=== PATIENT | male | born 1940 | race Caucasian/White ===

== ENCOUNTER 2020-03-12 06:32 | Day surgery (SDC) | payer MEDICARE, BC, SELFPAY ==
[2020-03-11 15:28] VITALS: BMI 29.2
[2020-03-12 06:46] VITALS: BP 131/69; PULSE 63; RESP 18; TEMP 36.1; O2SAT 97
[2020-03-12] MEDS: sodium chloride 0.9% 1,000 ML 30 ML IV (07:09)
--- NOTE | 2020-03-12 07:17 | W.PM.OPSUD ---
Surgery/Procedure H&P Update DATE OF PROCEDURE: March 12, 2020 DATE H&P PERFORMED: 03/02/20 H&P UPDATE INFORMATION: I have reviewed H&P completed within last 30 days and No changes to prior documentation PREOP DIAGNOSIS: Narrowing caliber of stool, increasing constipation PLANNED PROCEDURE: Operation Date: 03/12/20 08:00 Proposed Procedures p Colonoscopy(Not Applicable) - Jose Hitchcock MD
--- NOTE | 2020-03-12 07:39 | ANES.PREANE2 ---
Pre-Anesthetic Assessment Pre-Anesthetic Assessment: Height/Weight: Height 1.78 m Weight 92.533 kg Temp Pulse Resp BP Pulse Ox 97.0 F L 63 18 131/69 97 03/12/20 06:46 03/12/20 06:46 03/12/20 06:46 03/12/20 06:46 03/12/20 06:46 Preop Diagnosis: Narrowing caliber of stool, increasing constipation Proposed Procedure: Operation Date: 03/12/20 08:00 Proposed Procedures p Colonoscopy(Not Applicable) - Jose Hitchcock MD Was Beta Elio taken within 24 hours: Yes Last intake: Intake Last Liquid Date 03/11/20 Last Liquid Time 18:30 Last Solid Date 03/11/20 Last Solid Time 12:00 Social: Social History: No alcohol and No tobacco Exam: Pre-Anes Outpt Exam: alert, oriented x 3, clear to auscultation bilaterally and regular rate & rhythm Airway: Submandibular: WNL Cervical ROM: WNL MP: 2 Dentition: False History/ROS: No significant history except as noted and No significant complaints Pulmonary: Pulmonary: Sleep apnea CV/HEM: CV/HEM: CAD and HTN : : None reported Hepatic: Hepatic: None reported GI: GI: GERD Metabolic: Metabolic: Hyperlipidemia Musc/skel: Musc/skel: OA/DJD Neuropsych: Neuropsych: None reported Anesthetic Plan: ASA status: 3 Anesthesia: Anesthesia Evaluation and MAC Risk of > 500 ml blood loss (7ml/kg in children): No Meds/Allergies Current Medications: Current Medications Generic Name Dose Route Start Last Admin Trade Name Freq PRN Reason Stop Dose Admin Sodium Chloride 1,000 mls @ 30 ml s/hr 03/12/20 06:45 03/12/20 07:09 Sodium Chloride 0.9% IV 03/13/20 06:44 30 mls/hr .Q24H WALTER Administration PFSH Anesthesia PFSH: Family History (Updated 03/11/20 @ 15:36 by Shira Palafox RN) Other Prostate cancer Social History (Updated 03/11/20 @ 15:37 by Shira Palafox RN) Smoking and tobacco status: former smoker Data Anesthesia Cardiac Studies: No Data to Display
[2020-03-12 08:04] VITALS: BP 128/71; PULSE 61; RESP 16; TEMP 36.6; O2SAT 96
[2020-03-12 08:18] VITALS: BP 142/61; PULSE 60; RESP 18; TEMP 36.6; O2SAT 98
== END 2020-03-12 08:38 | disposition home or self-care (01) ==
PROVIDERS: Family Provider Family Medicine; PCP Family Medicine; Visit Provider Surgery
PROC: 0DJD8ZZ Inspection of Lower Intestinal Tract, Via Natural or Artificial Opening Endoscopic (ICD-10-PCS; CPT 45378; principal; 2020-03-12 08:00)
DX: R19.5 Other fecal abnormalities (principal); K59.00 Constipation, unspecified; D12.0 Benign neoplasm of cecum; K64.8 Other hemorrhoids; I25.10 Atherosclerotic heart disease of native coronary artery without angina pectoris; I10 Essential (primary) hypertension; G47.30 Sleep apnea, unspecified; E78.5 Hyperlipidemia, unspecified; M19.90 Unspecified osteoarthritis, unspecified site; K21.9 Gastro-esophageal reflux disease without esophagitis; Z87.891 Personal history of nicotine dependence
CPT/HCPCS: 45385; 12345; 45380; 88305; J2001; J2704; J7030

== ENCOUNTER 2020-07-16 13:11 | Outpatient (CLI) | payer MEDICARE, BC, SELFPAY ==
--- NOTE | 2020-07-16 13:19 | US_ITS ---
WS: [id number] ULTRASOUND SOFT TISSUES superior LEFT gastrocnemius. HISTORY: MUSCLE TEAR/ ATTN:SUPERIOR LATERAL GASTROC COMPARISON: None available. TECHNIQUE: 2-D and color Doppler imaging is submitted. There is no fluid or hematoma associated with the LEFT gastrocnemius muscle. There is no fluid or ret raction of the tendon. US/US soft tissue/extremity [id number] IMPRESSION: Negative ultrasound LEFT gastrocnemius.
== END 2020-07-16 13:12 | disposition home or self-care (01) ==
LOC: RAD 13:15
PROVIDERS: PCP Family Medicine; Visit Provider Family Medicine
DX: M62.00 Separation of muscle (nontraumatic), unspecified site (principal)
CPT/HCPCS: 76882

== ENCOUNTER 2020-10-19 09:45 | Outpatient (CLI) | payer MEDICARE, BC, SELFPAY ==
--- NOTE | 2020-10-19 10:15 | USCV_ITS ---
Vikki Alvarez Age: 80 Gender: M : 1940 Exam Date: 10/19/2020 09:59 Ordering Phys: Danie Magallon MD ([email or web address]) Technologist: Trevor Turpin [place] [facility] [place]: CAD BP: 143 / 86 HR: 64 Rhythm: Sinus Technical Quality: Fair MEASUREMENTS (Male / Female) Normal Values 2D ECHO LV Diastolic Diameter PLAX 3.7 cm 4.2 - 5.9 / 3.9 - 5.3 cm LV Systolic Diameter PLAX 2.2 cm IVS Diastolic Thickness 0.9 cm 0.6 - 1.0 / 0.6 - 0.9 cm IVS Systolic Thickness 1.2 cm LVPW Diastolic Thickness 1.0 cm 0.6 - 1.0 / 0.6 - 0.9 cm LVPW Systolic Thickness 1.2 cm LVOT Diameter 2.0 cm LV Ejection Fraction 2D Teich 71.7 % LV Ejection Fraction MOD 2C 63.4 % LV Ejection Fraction 2C AL 64.3 % LA Diameter 3.6 cm LA Width 4.2 cm LA Height 4.8 cm RA Width 3.9 cm RA Height 4.6 cm Aorta at Sinotubular Diameter 2.4 cm M-MODE LV Diastolic Diameter MM 4.3 cm 4.2 - 5.9 / 3.9 - 5.3 cm LV Systolic Diameter MM 3.1 cm LV Ejection Fraction MM Teich 52.7 % IVS Diastolic Thickness MM 1.3 cm 0.6 - 1.0 / 0.6 - 0.9 cm IVS Systolic Thickness MM 1.1 cm LVPW Diastolic Thickness MM 1.2 cm 0.6 - 1.0 / 0.6 - 0.9 cm LVPW Systolic Thickness MM 1.7 cm RV Diastolic Diameter MM 1.9 cm Aortic Annulus Diameter 3.7 cm LA Ao Ratio MM 0.9 MV E Point Septal Separation 1.3 cm DOPPLER AV Peak Velocity 119.0 cm/s LVOT Peak Velocity 98.0 cm/s AV Area Cont Eq vti 2.9 cm squared AV Area Cont Eq pk 2.6 cm squared MV Area PHT 5.0 cm squared Mitral E to A Ratio 0.6 MV E' Velocity 29.0 cm/s Mitral E to MV E' Ratio 8.7 Mitral E to LV E' Lateral Ratio 8.4 Mitral E to LV E' Septal Ratio 9.0 TR Peak Velocity 332.3 cm/s TR Peak Gradient 44.2 mmHg TV Peak E Velocity 91.0 cm/s Right Atrial Pressure 3.0 mmHg Pulmonary Artery Systolic Pressu 47.2 mmHg PV Peak Velocity 134.0 cm/s FINDINGS Left Ventricle Normal left ventricular size, systolic function and wall thickness, with no regional wall motion abnormalities. Left ventricular ejection fraction is estimated at 60 %. Grade I diastolic dysfunction (abnormal relaxation filling pattern), normal to mildly elevated filling pressures. Right Ventricle Normal right ventricular size and systolic function. Right ventricular systolic pressure 22 mmHg. Right Atrium Normal right atrial size. Right atrial pressure estimated at 3 mm Hg. Left Atrium Normal left atrial size. Mitral Valve Structurally normal mitral valve. No mitral valve stenosis. Trace mitral valve regurgitation. Aortic Valve Aortic valve not well visualized. No aortic valve stenosis. Mild to moderate aortic valve regurgitation. Tricuspid Valve Structurally normal tricuspid valve. No tricuspid valve stenosis. Trace tricuspid valve regurgitation. Pulmonic Valve Pulmonic valve not well visualized. Pericardium No pericardial effusion. Aorta Normal size aortic root and proximal ascending aorta. Normal sized inferior vena cava. CONCLUSIONS 1. Normal left ventricular size, systolic function and wall thickness, with no regional wall motion abnormalities. Left ventricular ejection fraction is estimated at 65 %. Grade I diastolic dysfunction (abnormal relaxation filling pattern), normal to mildly elevated filling pressures. 2. No significant aortic valve stenosis based on this study. Mild to moderate aortic valve regurgitation. 3. Normal pulmonary artery pressure. 4. When compared to previous study dated 09/13/20, aortic valve stenosis was not seen. Myah Goff MD (Electronically Signed) Final Date: 25 October 2020 14:36 S
== END 2020-10-19 09:46 | disposition home or self-care (01) ==
LOC: US 09:45
PROVIDERS: PCP Family Medicine; Visit Provider Internal Medicine Cardiovascular Disease
DX: I25.10 Atherosclerotic heart disease of native coronary artery without angina pectoris (principal)
CPT/HCPCS: 93306

== ENCOUNTER 2020-12-21 09:19 | Outpatient (CLI) | payer MEDICARE, BC, SELFPAY ==
--- NOTE | 2020-12-21 09:58 | AMB.MCA ---
Patient Information Referred by: Sathish Chan Symptom onset date: 12/16/20 COVID 19 common symptoms: positive fever(s), fatigue and body aches Severity: mild Other details: 97% RA [employer] Sathish Chan Covid test on Dec [facility] COVID test results: No Data to Display outside results available, scanned Criteria/Plan Inclusion/Exclusion Criteria weight >/= 40kg, + direct test </= 10 days ago and symptom onset </= 10 days ago age >/= 65 not requiring hospitalization, not requiring oxygen (if not chronically on oxygen) and no increase oxygen requirement (if chronically on oxygen) Patient education patient/caregiver received/reviewed fact sheet, Emergency Use Authorization/unapproved drug status discussed with patient/caregiver, alternatives to this treatment discussed with patient/caregiver, risks and benefits of medication reviewed with patient/caregiver, patient/caregiver given opportunity for questions, which were answered and patient/caregiver consents to receiving Monoclonal Antibody Treatment Plan for treatment Meets criteria for Monoclonal Antibody infusion Ordering Monoclonal Antibody infusion for today
[2020-12-21 10:00] VITALS: BP 141/64; PULSE 75; RESP 18; TEMP 36.4; O2SAT 97
[2020-12-21 10:16] VITALS: BMI 30.2
[2020-12-21 11:16] VITALS: BP 122/54; PULSE 68; RESP 17; TEMP 36.4; O2SAT 97
[2020-12-21 12:15] VITALS: BP 137/58; PULSE 62; RESP 18; O2SAT 97
== END 2020-12-21 12:10 | disposition home or self-care (01) ==
LOC: OPS 09:21
PROVIDERS: PCP Family Medicine; Referring Provider Nurse Practitioner Family; Visit Provider Nurse Practitioner Family
DX: U07.1 COVID-19 (principal)
CPT/HCPCS: 96365

== ENCOUNTER 2021-04-19 10:00 | Outpatient (CLI) | payer MEDICARE, BC, SELFPAY ==
--- NOTE | 2021-04-19 10:20 | XRR_ITS ---
PROCEDURE INFORMATION: Exam: XR Chest Exam date and time: 04/19/2021 10:22 AM Age: 80 years old Clinical indication: Patient HX: Cough x 1 month; Additional info: Pleurisy TECHNIQUE: Imaging protocol: XR of the chest. Views: 2 views. COMPARISON: CR Chest 1 [place] [id number] 11/06/2018 8:44 PM FINDINGS: Lungs: No acute airspace disease. Pleural spaces: No pleural effusion. Heart/Mediastinum: No cardiomegaly. Vasculature: Ectasia of the thoracic aorta. Bones/joints: Degenerative change. When correlating with the previous study, no significant interval changes are present. XR/XR chest 2V* [id number] IMPRESSION: No acute airspace for pleural disease.
== END 2021-04-19 10:01 | disposition home or self-care (01) ==
PROVIDERS: PCP Family Medicine; Visit Provider Family Medicine
DX: R09.1 Pleurisy (principal)
CPT/HCPCS: 71046

== ENCOUNTER 2021-11-04 09:11 | Outpatient (CLI) | payer MEDICARE, BC, SELFPAY ==
--- NOTE | 2021-11-04 09:30 | USCV_ITS ---
Vikki Alvarez Age: 81 Gender: M : 1940 Exam Date: 11/04/2021 09:30 Ordering Phys: Sohail Dior M.D ([email or web address]) Technologist: Exam Location: [facility] – [place] Indication: AO INSUFF BP: 140 / 80 HR: 67 Rhythm: Sinus Technical Quality: Adequate MEASUREMENTS (Male / Female) Normal Values 2D ECHO LV Diastolic Diameter PLAX 3.8 cm 4.2 - 5.9 / 3.9 - 5.3 cm LV Systolic Diameter PLAX 1.9 cm IVS Diastolic Thickness 1.2 cm 0.6 - 1.0 / 0.6 - 0.9 cm IVS Systolic Thickness 1.3 cm LVPW Diastolic Thickness 1.1 cm 0.6 - 1.0 / 0.6 - 0.9 cm LVPW Systolic Thickness 1.4 cm LVOT Diameter 2.0 cm LV Ejection Fraction 2D Teich 84.3 % LV Ejection Fraction MOD 2C 64.0 % LV Ejection Fraction 2C AL 65.6 % LA Diameter 3.7 cm LA Width 3.7 cm LA Height 4.8 cm RA Width 3.9 cm RA Height 4.7 cm Aorta at Sinotubular Diameter 3.7 cm M-MODE Aortic Annulus Diameter 3.4 cm LA Ao Ratio MM 1.2 MV E Point Septal Separation 1.4 cm DOPPLER AV Peak Velocity 253.0 cm/s LVOT Peak Velocity 111.0 cm/s AV Area Cont Eq vti 1.8 cm squared AV Area Cont Eq pk 1.4 cm squared MV Area PHT 5.0 cm squared Mitral E to A Ratio 0.6 MV E' Velocity 32.5 cm/s Mitral E to MV E' Ratio 7.0 Mitral E to LV E' Lateral Ratio 6.8 Mitral E to LV E' Septal Ratio 7.4 TR Peak Velocity 270.0 cm/s TR Peak Gradient 29.2 mmHg TV Peak E Velocity 113.0 cm/s Right Atrial Pressure 3.0 mmHg Pulmonary Artery Systolic Pressu 32.2 mmHg FINDINGS Left Ventricle Normal left ventricular size. LV systolic function is normal with EF of 55-60%.No regional wall motion abnormalities. Grade 1 diastolic dysfunction Right Ventricle The right ventricle is normal in size and function. Right Atrium The right atrium is normal in size. Left Atrium The left atrium is normal in size. Mitral Valve Thickened mitral valve without significant stenosis or prolapse. There is no mitral regurgitation. Aortic Valve Structurally normal aortic valve. Mild aortic stenosis with mean gradient across the aortic valve of 11mmHg and aortic valve area of 1.81cm2. There is mild aortic regurgitation. Tricuspid Valve Structurally normal tricuspid valve without significant stenosis or regurgitation. Insufficient TR jet to calculate RVSP Pulmonic Valve Structurally normal pulmonic valve without significant stenosis. There is no pulmonic regurgitation. Pericardium Normal pericardium without effusion. Aorta Normal ascending aorta dimension. CONCLUSIONS LV systolic function is normal with EF of 55-60% Grade 1 diastolic dysfunction Mild aortic regurgitation.. Mild aortic stenosis Compared to prior echocardiogram from 10/19/2020, patient now has mild aortic stenosis Sohail Dior MD (Electronically Signed) Final Date: 08 November 2021 10:52 S
== END 2021-11-04 09:12 | disposition home or self-care (01) ==
LOC: RAD 09:15
PROVIDERS: PCP Family Medicine; Visit Provider Internal Medicine
DX: I35.1 Nonrheumatic aortic (valve) insufficiency (principal)
CPT/HCPCS: 93306

== ENCOUNTER → 2022-03-08 12:46 | Outpatient (BNVA) | payer MEDICARE, BC, SELFPAY | PROVIDERS: PCP Family Medicine; Visit Provider Internal Medicine | DX: I10 Essential (primary) hypertension (principal); E78.00 Pure hypercholesterolemia, unspecified; I25.10 Atherosclerotic heart disease of native coronary artery without angina pectoris; I35.2 Nonrheumatic aortic (valve) stenosis with insufficiency; Z95.5 Presence of coronary angioplasty implant and graft; Z87.891 Personal history of nicotine dependence | CPT/HCPCS: 99213; 99214 ==

== ENCOUNTER → 2022-05-23 14:33 | Outpatient (BNVA) | payer MEDICARE, BC, SELFPAY | PROVIDERS: PCP Family Medicine; Visit Provider Nurse Practitioner Family | DX: I25.10 Atherosclerotic heart disease of native coronary artery without angina pectoris (principal); I10 Essential (primary) hypertension; Z87.891 Personal history of nicotine dependence | CPT/HCPCS: 93005; 99213 ==

== ENCOUNTER 2022-10-24 12:00 | Emergency (ER) | payer MEDICARE, BC, SELFPAY ==
[2022-10-24 12:23] VITALS: BP 150/70; PULSE 101; RESP 16; TEMP 38.9; O2SAT 94; BMI 28.7
--- NOTE | 2022-10-24 12:27 | XR_ITS ---
WS: [id number] Portable AP upright chest, 10/24/2022 Clinical Data: cough Comparison: PA and lateral chest, 04/19/2021. Findings: No nodules, masses or effusions are seen. The right heart border is slightly obscured and t here may be minimal atelectasis or pneumonia of the right middle lobe. The heart is normal. The pulmo nary vascularity is not increased. No pneumonia or pneumothorax is seen. The aortic arch and descendi ng thoracic aorta show tortuosity. XR/XR chest 1V portable [id number] Impression: 1. Minimal opacity obscuring right cardiac border which could indicate atelecta sis and/or minimal pneumonia. 2. Atherosclerosis.
[2022-10-24 14:20] VITALS: BP 130/69; PULSE 104; RESP 18; O2SAT 94
--- NOTE | 2022-10-24 14:34 | ED_ITS ---
HPI - Fever General: Chief Complaint: General Medical Stated Complaint: chills, fever Time Seen by Provider: 10/24/22 14:18 Source: patient and family Mode of arrival: ambulatory Limitations: no limitations History of Present Illness: Patient is a nice 82-year-old male who presents to ED today along with family for concerns of a cough and fever that began yesterday evening. Patient tells me his cough is productive. Patient is febrile upon arrival at 102.1. He denies sick contacts. He is having g eneralized body aches but no specific pain anywhere. He does not complain of chest pain, shortness of breath, or difficulty breathing. He is not having any abdominal pain, nausea, vomiting. No other URI symptoms besides the cough. MD elicited complaint: fever Onset (ago): day(s) (yesterday) Exacerbating factors: nothing Relieving factors: nothing Associated symptoms: Reports chills; Deny abdominal pain, flank pain, chest pain, confusion, diarrhea, dysuria, extremity pain, headache(s), nasal congestion, nausea, sinus pain or vomiting Treatments prior to arrival fever: none Review of Systems Const: Reports: fever(s), chills and body aches Eyes: Denies: change in vision, blurry vision, photophobia or eye discharge ENMT: Denies: throat pain, odynophagia, ear or mastoid pain, nasal discharge, nasal congestion, post nasal drip or sinus pain Card: Denies: chest pain, palpitations, irregular heart rhythm, edema, lightheadedness, syncope or pre-syncope Resp: Reports: productive cough and chest congestion; Denies: dyspnea, wheezing, pain on inspiration or hemoptysis GI: Denies: abdominal pain, nausea, vomiting or diarrhea : Denies: flank pain or dysuria Musc: Denies: neck pain, back pain, extremity pain or joint pain Skin/Breast: Denies: rash Neuro: Denies: headache(s), confusion or behavioral changes PFSH ED PFSH: Medical History Aortic insufficiency with aortic stenosis CAD (coronary artery disease) GERD (gastroesophageal reflux disease) Glaucoma History of malignant melanoma History of nonmelanoma skin cancer History of skin cancer Hx of radiation therapy Hypercholesteremia Hypertension Sleep apnea Tobacco abuse Surgical History H/O heart artery stent History of hip surgery Hx of knee surgery Family History Other Prostate cancer Social History Smoking and tobacco status: former smoker Alcohol intake: never Lives independently: Yes Marital status: / service: Yes branch: [employer] Physical Exam Const: COMMON NORMALS: no acute distress, average body habitus, patient oriented x3, no limitations, healthy appearing, alert and well nourished GENERAL APPEARANCE: cooperative ORIENTATION/CONSCIOUSNESS: Yes awake, Yes oriented to person, Yes oriented to place and Yes oriented to time HENMT: COMMON NORMALS: normocephalic and atraumatic HEAD & SCALP: normal to inspection, normocephalic and atraumatic THROAT: posterior oropharynx normal Eye: GENERAL EYE: appearance normal, both eyes and all related structures Neck/C-Spine: COMMON NORMALS: full ROM and no lymphadenopathy GENERAL: Yes normal visual inspection Chest: COMMONS NORMALS: normal inspection of the chest and normal palpation of entire chest wall Resp: COMMON NORMALS: normal respiratory effort, No retractions and No use of accessory muscles EFFORT & INSPECTION: Yes able to speak in complete sentences AUSCULTATION: rhonchi Cardio: COMMON NORMALS: regular rhythm RATE: tachycardic (mild-patient is currently febrile) RHYTHM: regular rhythm GI: COMMON NORMALS: Normal to inspection, nondistended, normoactive bowel sounds present, Soft to palpation and non-tender PALPATION: Yes Soft to palpation : COMMON NORMALS: Yes no CVA tenderness BLADDER/KIDNEY EXAM: Yes no CVA tenderness Back/Pelvis: COMMON NORMALS: no CVA tenderness Extremity: COMMON NORMALS: normal to inspection GENERAL: Yes normal exam except as noted Neuro: JOSE ROBERTO COMA SCALE: document [facility] findings Jose Roberto coma scale eye opening: Spontaneous Jose Roberto coma scale verbal response: Orientated [place] coma scale motor response: Obey commands Jose Roberto coma scale total score: 15 COMMON NORMALS: patient oriented x3 SENSORIUM/ORIENTATION: Yes alert, Yes oriented to person, Yes oriented to place and Yes oriented to time Skin: COMMON NORMALS: no rashes or lesions noted GENERAL SKIN EXAM: no rashes or lesions noted Course Vital Signs: Vital signs: Vital Signs Temperature 97.6 F 10/24/22 16:41 Pulse Rate 100 10/24/22 16:41 Respiratory Rate 18 10/24/22 16:41 Blood Pressure 130/69 10/24/22 14:20 Pulse Oximetry 94 10/24/22 16:41 Oxygen Delivery Me thod 10/24/22 16:41 MDM - Fever Medical Decision Making Patient is feeling better now that fever has subsided and wishes to go home. He does not complain of shortness of breath, difficulty breathing, or chest pain. O2 sats are normal. His rapid influenza and COVID were negative. I did go ahead and obtain a respiratory panel although at this time it looks like patient has a bacterial pneumonia. He has a right cardiac border infiltrate with a white count of 17.7 and an elevated Pro-Goran at 0.9. Lactate normal. I had initially ordered patient IV Rocephin and Azithromycin however patient would like to go home so we compromised on IM Rocephin and he will be sent home with oral antibiotics. He has allergy to penicillins so will place on cephalosporin/macrolide for coverage of CAP. Lab Data 10/24/22 15:21 10/24/22 15:21 Radiology Impressions Chest X-Ray 10/24/22 12:27 Impression: 1. Minimal opacity obscuring right cardiac border which could indicate atelectasis and/or minimal pneumonia. 2. Atherosclerosis. Laboratory Results WBC 17.7 10^3/uL (4.0-10.0) H 10/24/22 15:21 RBC 4.56 10^6/uL (4.1-5.3) 10/24/22 15:21 Hgb 14.1 g/dL (11.7-16.6) 10/24/22 15:21 Hct 40.5 % (42.0-52.0) L 10/24/22 15:21 MCV 88.8 fl (80-94) 10/24/22 15:21 MCH 30.9 pg (28.0-34.0) 10/24/22 15:21 MCHC 34.8 g/dL (30.0-36.0) 10/24/22 15:21 RDW 12.8 % (12.1-15.1) 10/24/22 15:21 Plt Count 153 10^3/cmm (130-400) 10/24/22 15:21 MPV 9.8 fL (7.4-10.4) 10/24/22 15:21 Neut % (Auto) 88.5 % 10/24/22 15:21 Lymph % (Auto) 4.2 % 10/24/22 15:21 [place] % (Auto) 6.3 % 10/24/22 15:21 Eos % (Auto) 0.1 % 10/24/22 15:21 Baso % (Auto) 0.2 % 10/24/22 15:21 Neut # (Auto) 15.67 10^3/uL (1.8-7.7) H 10/24/22 15:21 Lymph # (Auto) 0.7 10^3/uL (0.8-4.8) L 10/24/22 15:21 [place] # (Auto) 1.1 10^3/uL (0.2-0.9) H 10/24/22 15:21 Eos # (Auto) 0.0 10^3/uL (0.0-0.8) 10/24/22 15:21 Baso # (Auto) 0.0 10^3/uL (0.0-0.1) 10/24/22 15:21 Nucleated RBC % (auto) 0 % 10/24/22 15:21 Nucleated RBCs # 0.0 /100WBC 10/24/22 15:21 Sodium 130 mmol/L (136-145) L 10/24/22 15:21 Potassium 3.6 mmol/L (3.5-5.1) 10/24/22 15:21 Chloride 95 mmol/L (98-107) L 10/24/22 15:21 Carbon Dioxide 24 mmol/L (22-29) 10/24/22 15:21 Anion Gap 14.6 (5-19) 10/24/22 15:21 BUN 8 mg/dL (8-23) 10/24/22 15:21 Creatinine 0.8 mg/dL (0.7-1.2) 10/24/22 15:21 GFR Calculation Not Reportable 10/24/22 15:21 Glucose 132 mg/dL (65-115) H 10/24/22 15:21 Calculated Osmolality 270 mOsm/kg (285-295) L 10/24/22 15:21 Lactic Acid 1.6 mmol/L (0.5-2.2) 10/24/22 15:21 Calcium 8.9 mg/dL (8.5-10.5) 10/24/22 15:21 Total Bilirubin 0.7 mg/dL (0.15-1.2) 10/24/22 15:21 AST 17 U/L (0-40) 10/24/22 15:21 ALT 10 U/L (0-41) 10/24/22 15:21 Alkaline Phosphatase 68 U/L (40-130) 10/24/22 15:21 Total Protein 7.4 g/dL (6.6-8.7) 10/24/22 15:21 Albumin 4.3 g/dL (3.5-5.2) 10/24/22 15:21 Globulin 3.1 g/dL (1.3-4.6) 10/24/22 15:21 Procalcitonin 0.91 ng/mL (0-0.5) H 10/24/22 15:21 Urine Color Yellow (Yellow) 10/24/22 16:02 Urine Appearance Clear (CLEAR) 10/24/22 16:02 Urine pH 6.5 (5-7) 10/24/22 16:02 Ur Specific [place] 1.005 (1.005-1.030) 10/24/22 16:02 Urine Protein Neg (Negative) 10/24/22 16:02 Urine Glucose (UA) Norm (Normal) 10/24/22 16:02 Urine Ketones Negative (Negative) 10/24/22 16:02 Urine Blood Neg (Negative) 10/24/22 16:02 Urine Nitrate Negative (Negative) 10/24/22 16:02 Urine Bilirubin Neg (Negative) 10/24/22 16:02 Urine Urobilinogen Norm mg/dL (Negative) 10/24/22 16:02 Ur Leukocyte Esterase Negative (Negative) 10/24/22 16:02 Influenza Type A Ag negative (Negative) 10/24/22 14:17 Influenza Type B Ag negative (Negative) 10/24/22 14:17 SARS-CoV-2 Ag (Rapid) negative (Negative) 10/24/22 14:17 Discharge Plan Discharge Patient Disposition: Home Clinical Impression: Pneumonia involving right lung Qualifiers: Pneumonia type: due to unspecified organism Lung location: unspecified part of lung Qualified Code(s): J18.9 - Pneumonia, unspecified organism Condition: Stable Prescriptions: New cefpodoxime 200 mg tablet 200 mg PO BID Qty: 14 0RF Rx Instructions: must administer with a meal/food azithromycin 250 mg tablet See Rx Instructions .ROUTE .COMPLEX Qty: 6 0RF Rx Instructions: take 500 mg today (day 1), then 250 mg for 4 days (days 2-5) No Action aspirin [Aspir-81] 81 mg tablet,delayed release (DR/EC) 81 mg PO DAILY ketoconazole 2 % cream 1 applic topical BID Qty: 30 2RF Rx Instructions: To pink scaly areas on face as needed metoprolol succinate 25 mg tablet extended release 24 hr 12.5 mg PO DAILY Qty: 45 3RF atorvastatin 20 mg tablet 20 mg PO DAILY omeprazole 20 mg capsule,delayed release(DR/EC) 20 mg PO DAILY Discharge Orders: Discharge ED (Routine); Ordered 10/24/22 Ordered By: Neeta Mi Referrals: Ronaldo Ramos DO [Primary Care Provider] - Patient Instructions: Bacterial Pneumonia (DC), Pneumonia (ED) Activity Restrictions/Additional Instructions: Please fill antibiotics and start them immediately. You need to return to the emergency department for shortness of breath, difficulty breathing, chest pain, uncontrollable fevers, or worsening cough. As we discussed you may purchase a home O2 finger sensor to monitor oxygen levels. He needs to return to the ED if oxygen begins running below 92%. Please follow-up with his primary care provider in 2 to 3 days for re-evaluation. I hope he begins to feel better soon. Coding Level of Care Code ED Assistant Professor Of Archaeology for Rhonda Irizarry Exam Comprehensive
[2022-10-24 14:42] LABS: SARS Covid-2 Antigen negative (Negative)
[2022-10-24 14:43] LABS: Influenza A by IFA negative (Negative); Influenza B by IFA negative (Negative)
[2022-10-24 15:37] LABS: Basophils % 0.2 %; Eosinophils % 0.1 %; Hematocrit 40.5 % (42.0-52.0); Hemoglobin 14.1 g/dL (11.7-16.6); Lymphocytes # 0.7 10^3/uL (0.8-4.8); Lymphocytes % 4.2 %; Mean Corpuscular HGB Conc 34.8 g/dL (30.0-36.0); Mean Corpuscular Hemoglobin 30.9 pg (28.0-34.0); Mean Corpuscular Volume 88.8 fl (80-94); Mean Platelet Volume 9.8 fL (7.4-10.4); Monocytes # 1.1 10^3/uL (0.2-0.9); Monocytes % 6.3 %; Neutrophils # 15.67 10^3/uL (1.8-7.7); Neutrophils % 88.5 %; Nucleated Red Blood Cells % 0 %; Platelet Count 153 10^3/cmm (130-400); Red Blood Count 4.56 10^6/uL (4.1-5.3); Red Cell Distribution Width 12.8 % (12.1-15.1); White Blood Count 17.7 10^3/uL (4.0-10.0)
[2022-10-24] MEDS: acetaminophen 500 mg Tablet 1000 MG PO (15:55)
[2022-10-24 16:10] LABS: Lactic Sepsis W/Reflex 1.6 mmol/L (0.5-2.2)
[2022-10-24 16:20] LABS: Procalcitonin 0.91 ng/mL (0-0.5)
[2022-10-24 16:30] LABS: Add Urine Microscopic? NO; Charge for UA Resulting for Rev
[2022-10-24 16:32] LABS: Bilirubin Urine Neg (Negative); Blood Urine Neg (Negative); Glucose Urine UA Norm (Normal); Ketones Urine Negative (Negative); Leukocyte Esterase Urine Negative (Negative); Nitrate Urine Negative (Negative); Protein Urine Neg (Negative); Specific Gravity, Urine 1.005 (1.005-1.030); Urine Appearance Clear (CLEAR); Urine Color Yellow (Yellow); Urobilinogen Urine Norm (Negative); pH Urine 6.5 (5-7)
[2022-10-24 16:32] LABS: Alanine Aminotransferase 10 U/L (0-41); Albumin Level 4.3 g/dL (3.5-5.2); Alkaline Phosphatase 68 U/L (40-130); Anion Gap 14.6 (5-19); Blood Urea Nitrogen 8 mg/dL (8-23); Calcium 8.9 mg/dL (8.5-10.5); Carbon Dioxide 24 mmol/L (22-29); Chloride 95 mmol/L (98-107); Globulin 3.1 g/dL (1.3-4.6); Glucose 132 mg/dL (65-115); Osmolality Calculated 270 mOsm/kg (285-295); Potassium 3.6 mmol/L (3.5-5.1); Sodium 130 mmol/L (136-145); Total Bilirubin 0.7 mg/dL (0.15-1.2); Total Protein 7.4 g/dL (6.6-8.7)
[2022-10-24 16:41] VITALS: PULSE 100; RESP 18; TEMP 36.4; O2SAT 94
[2022-10-24 16:42] LABS: Aspartate Amino Transferase 17 U/L (0-40)
[2022-10-24] MEDS: cefTRIAXone 1,000 MG in lidocaine 1% 2.1 ML 3 MG IM (17:27)
[2022-10-24 17:52] LABS: Adenovirus Not Detected (NOT DETECT); Chlamydia Pneumoniae Not Detected (NOT DETECT); Coronavirus 229E,HKU1,NL63,OC4 Not Detected (NOT DETECT); Human Metapneumovirus Not Detected (NOT DETECT); Human Rhinovirus/Enterovirus Not Detected (NOT DETECT); Influenza A Detected (NOT DETECT); Influenza A H1 Not Detected (NOT DETECT); Influenza A H1-2009 Detected (NOT DETECT); Influenza A H3 Not Detected (NOT DETECT); Influenza B Not Detected (NOT DETECT); Mycoplasma Pneumoniae Not Detected (NOT DETECT); Parainfluenza Virus Type 1 Not Detected (NOT DETECT); Parainfluenza Virus Type 2 Not Detected (NOT DETECT); Parainfluenza Virus Type 3 Not Detected (NOT DETECT); Parainfluenza Virus Type 4 Not Detected (NOT DETECT); Respiratory Syncytial Virus A Not Detected (NOT DETECT); Respiratory Syncytial Virus B Not Detected (NOT DETECT); SARS-COV-2 Not Detected (NOT DETECT)
== END 2022-10-24 17:20 | disposition home or self-care (01) ==
PROVIDERS: Emergency Medicine; Emergency Provider Physician Assistant; PCP Family Medicine
DX: J18.9 Pneumonia, unspecified organism (principal); Z79.82 Long term (current) use of aspirin; Z20.822 Contact with and (suspected) exposure to COVID-19; I25.10 Atherosclerotic heart disease of native coronary artery without angina pectoris; I10 Essential (primary) hypertension; Z87.891 Personal history of nicotine dependence
CPT/HCPCS: 36415; 71045; 80053; 81003; 83605; 84145; 85025; 87426; 87486; 87581; 87633; 87804; 96372; 99284; J0696

== ENCOUNTER → 2022-12-28 14:34 | Outpatient (BNVA) | payer MEDICARE, BC, SELFPAY | PROVIDERS: PCP Family Medicine; Visit Provider Internal Medicine | DX: I25.10 Atherosclerotic heart disease of native coronary artery without angina pectoris (principal); I10 Essential (primary) hypertension; E78.00 Pure hypercholesterolemia, unspecified; I35.2 Nonrheumatic aortic (valve) stenosis with insufficiency; Z95.5 Presence of coronary angioplasty implant and graft; Z87.891 Personal history of nicotine dependence | CPT/HCPCS: 99214 ==

== ENCOUNTER 2023-01-24 10:48 | Outpatient (CLI) | payer MEDICARE, BC, SELFPAY ==
--- NOTE | 2023-01-24 11:00 | USCV_ITS ---
Vikki Alvarez Age: 82 Gender: M : 1940 Exam Date: 01/24/2023 11:19 Ordering Phys: Sohail Dior M.D ([email or web address]) Technologist: Tutu Elkins Exam Location: [facility] – [place] Indication: chest pain, sob BP: 154 / 60 HR: 49 Rhythm: Sinus Technical Quality: Adequate MEASUREMENTS (Male / Female) Normal Values 2D ECHO LV Diastolic Diameter PLAX 6.0 cm 4.2 - 5.9 / 3.9 - 5.3 cm LV Systolic Diameter PLAX 4.2 cm IVS Diastolic Thickness 0.9 cm 0.6 - 1.0 / 0.6 - 0.9 cm IVS Systolic Thickness 1.1 cm LVPW Diastolic Thickness 0.9 cm 0.6 - 1.0 / 0.6 - 0.9 cm LVPW Systolic Thickness 1.1 cm LVOT Diameter 2.0 cm LV Ejection Fraction 2D Teich 55.5 % LV Ejection Fraction MOD 2C 75.0 % LV Ejection Fraction 2C AL 75.7 % LA Diameter 3.2 cm LA Width 2.9 cm LA Height 4.7 cm RA Width 3.6 cm RA Height 4.6 cm Aorta at Sinotubular Diameter 2.2 cm IVC Diameter 1.7 cm M-MODE Aortic Annulus Diameter 3.2 cm LA Ao Ratio MM 0.9 MV E Point Septal Separation 0.8 cm DOPPLER AV Peak Velocity 257.7 cm/s LVOT Peak Velocity 100.0 cm/s AV Area Cont Eq vti 1.5 cm squared AV Area Cont Eq pk 1.2 cm squared MV Peak Velocity 105.0 cm/s MV Area PHT 3.7 cm squared Mitral E to A Ratio 0.9 MV E' Velocity 41.5 cm/s Mitral E to MV E' Ratio 9.4 Mitral E to LV E' Lateral Ratio 9.1 Mitral E to LV E' Septal Ratio 9.7 TR Peak Velocity 357.2 cm/s TR Peak Gradient 51.0 mmHg TR Mean Velocity 281.4 cm/s TR Mean Gradient 34.8 mmHg TR Velocity Time Integral 107.6 cm Right Atrial Pressure 3.0 mmHg Pulmonary Artery Systolic Pressu 54.0 mmHg PV Peak Velocity 74.0 cm/s RV Acceleration Time 0.1 s RV Ejection Time 0.3 s RV AcT/ET 0.2 FINDINGS Left Ventricle Normal left ventricular size, systolic function and wall thickness, with no regional wall motion abnormalities. Left ventricular ejection fraction is estimated at 60 %. Grade I/IV diastolic dysfunction (abnormal relaxation filling pattern), normal to mildly elevated filling pressures. Right Ventricle The right ventricle is normal in size and function. Right Atrium The right atrium is normal in size. Left Atrium The left atrium is normal in size. Mitral Valve Moderately thickened mitral valve. Moderate mitral annular calcification. There is no mitral regurgitation. Aortic Valve Structurally normal aortic valve without significant sclerosis or stenosis. Moderate aortic valve calcification. Trace aortic regurgitation. Tricuspid Valve Structurally normal tricuspid valve without significant stenosis or regurgitation. Pulmonary artery systolic pressure is normal. Pulmonic Valve Structurally normal pulmonic valve without significant stenosis. There is no pulmonic regurgitation. Pericardium Normal pericardium without effusion. Aorta Normal ascending aorta dimension. IVC The inferior vena cava appears normal. CONCLUSIONS 1-Normal left ventricular size, systolic function and wall thickness, with no regional wall motion abnormalities. Left ventricular ejection fraction is estimated at 60 %. Grade I/IV diastolic dysfunction (abnormal relaxation filling pattern), normal to mildly elevated filling pressures. 2-Moderately thickened mitral valve. Moderate mitral annular calcification. There is no mitral regurgitation. 3-Structurally normal aortic valve without significant sclerosis or stenosis. Moderate aortic valve calcification. Trace aortic regurgitation. 4-There is no pericardial effusion. 5-Right atrial pressure is around 5 mm of mercury. Hansa García MD (Electronically Signed) Final Date: 24 January 2023 15:35 S
== END 2023-01-24 10:49 | disposition home or self-care (01) ==
LOC: RAD 10:52
PROVIDERS: PCP Family Medicine; Visit Provider Internal Medicine
DX: R07.9 Chest pain, unspecified (principal); R06.02 Shortness of breath; I08.0 Rheumatic disorders of both mitral and aortic valves
CPT/HCPCS: 93306

== ENCOUNTER → 2023-04-21 09:47 | Outpatient (BNVA) | payer MEDICARE, BC, SELFPAY | PROVIDERS: PCP Family Medicine; Visit Provider Nurse Practitioner Family | DX: L81.4 Other melanin hyperpigmentation (principal); D22.5 Melanocytic nevi of trunk; L85.3 Xerosis cutis; Z71.89 Other specified counseling; L57.8 Other skin changes due to chronic exposure to nonionizing radiation; L30.8 Other specified dermatitis; L21.8 Other seborrheic dermatitis; L57.0 Actinic keratosis; D48.5 Neoplasm of uncertain behavior of skin; Z85.828 Personal history of other malignant neoplasm of skin; Z87.891 Personal history of nicotine dependence | CPT/HCPCS: 11102; 17000; 17003; 99214 ==

== ENCOUNTER → 2023-06-29 14:53 | Outpatient (BNVA) | payer MEDICARE, BC, SELFPAY | PROVIDERS: PCP Family Medicine; Visit Provider Internal Medicine | DX: I10 Essential (primary) hypertension (principal); E78.00 Pure hypercholesterolemia, unspecified; I25.10 Atherosclerotic heart disease of native coronary artery without angina pectoris; I35.2 Nonrheumatic aortic (valve) stenosis with insufficiency; Z95.5 Presence of coronary angioplasty implant and graft; Z87.891 Personal history of nicotine dependence; Z79.82 Long term (current) use of aspirin | CPT/HCPCS: 99214 ==

== ENCOUNTER → 2023-08-21 14:13 | Outpatient (BNVA) | payer MEDICARE, BC, SELFPAY | PROVIDERS: PCP Clinical Nurse Specialist Adult Health; Visit Provider Clinical Nurse Specialist Adult Health | DX: N39.0 Urinary tract infection, site not specified (principal); R30.0 Dysuria | CPT/HCPCS: 81000; 87077; 87086; 87184 ==

== ENCOUNTER → 2023-09-18 09:45 | Outpatient (BNVA) | payer MEDICARE, BC, SELFPAY | PROVIDERS: PCP Clinical Nurse Specialist Adult Health; Visit Provider Clinical Nurse Specialist Adult Health | DX: N39.0 Urinary tract infection, site not specified (principal); R30.0 Dysuria; B96.1 Klebsiella pneumoniae [K. pneumoniae] as the cause of diseases classified elsewhere | CPT/HCPCS: 81000; 87086 ==

== ENCOUNTER → 2023-10-24 08:54 | Outpatient (BNVA) | payer MEDICARE, BC, SELFPAY | PROVIDERS: PCP Clinical Nurse Specialist Adult Health; Visit Provider Nurse Practitioner Family | DX: L57.0 Actinic keratosis (principal); Z85.820 Personal history of malignant melanoma of skin; Z85.828 Personal history of other malignant neoplasm of skin; D22.5 Melanocytic nevi of trunk; L81.4 Other melanin hyperpigmentation; L85.3 Xerosis cutis; L57.8 Other skin changes due to chronic exposure to nonionizing radiation; L21.8 Other seborrheic dermatitis; L82.1 Other seborrheic keratosis; L30.8 Other specified dermatitis | CPT/HCPCS: 17000; 99214 ==

== ENCOUNTER → 2023-11-21 10:43 | Outpatient (BNVA) | payer MEDICARE, BC, SELFPAY | PROVIDERS: PCP Clinical Nurse Specialist Adult Health; Visit Provider Clinical Nurse Specialist Adult Health | DX: I10 Essential (primary) hypertension (principal); E78.00 Pure hypercholesterolemia, unspecified | CPT/HCPCS: 80053; 80061; 85025 ==

== ENCOUNTER → 2024-01-04 14:46 | Outpatient (BNVA) | payer MEDICARE, BC, SELFPAY | PROVIDERS: PCP Clinical Nurse Specialist Adult Health; Visit Provider Internal Medicine | DX: I10 Essential (primary) hypertension (principal); I35.2 Nonrheumatic aortic (valve) stenosis with insufficiency; E78.00 Pure hypercholesterolemia, unspecified; I25.10 Atherosclerotic heart disease of native coronary artery without angina pectoris; Z95.5 Presence of coronary angioplasty implant and graft; Z87.891 Personal history of nicotine dependence | CPT/HCPCS: 99214 ==

== ENCOUNTER 2024-01-11 12:29 | Outpatient (CLI) | payer MEDICARE, BC, SELFPAY ==
--- NOTE | 2024-01-11 12:45 | USCV_ITS ---
Vikki Alvarez Age: 83 Gender: M : 1940 Exam Date: 01/11/2024 11:39 Ordering Phys: Sohail Dior M.D ([email or web address]) Technologist: KAREN Exam Location: [facility] – [place] Indication: AORTIC STENOSIS BP: 141 / 70 HR: 64 Rhythm: Sinus Technical Quality: Adequate MEASUREMENTS (Male / Female) Normal Values 2D ECHO LVOT Diameter 2.0 cm LV Ejection Fraction MOD 2C 59.1 % LV Ejection Fraction 2C AL 0.0 % LA Diameter 4.0 cm RA Systolic Volume 4C AL 30.8 ml RA Systolic Volume 4C MOD 30.0 ml Aorta at Sinotubular Diameter 2.5 cm M-MODE LA Ao Ratio MM 1.5 AV Cusp Separation MM 1.4 cm DOPPLER AV Peak Velocity 285.8 cm/s LVOT Peak Velocity 115.0 cm/s AV Area Cont Eq vti 1.6 cm squared AV Area Cont Eq pk 1.3 cm squared MV Peak Velocity 100.0 cm/s MV Area PHT 2.7 cm squared Mitral E to A Ratio 0.7 TR Peak Velocity 217.0 cm/s TR Peak Gradient 18.8 mmHg TR Mean Velocity 167.0 cm/s TR Mean Gradient 12.5 mmHg TR Velocity Time Integral 54.1 cm TV Peak E Velocity 52.0 cm/s Right Atrial Pressure 3.0 mmHg Pulmonary Artery Systolic Pressu 21.8 mmHg PV Peak Velocity 114.0 cm/s RV Ejection Time 0.4 s FINDINGS Left Ventricle Left ventricle is normal in size. LV systolic function is normal with EF of 55-60%. No regional wall motion abnormalities are seen. Grade 1 diastolic dysfunction. Right Ventricle Normal in size and function Right Atrium Normal in size Left Atrium Normal in size Mitral Valve Mitral valve is thickened. Mild mitral regurgitation. Aortic Valve Aortic valve is calcified and thickened. Moderate aortic stenosis with aortic valve area of 1.6 cm squared and mean gradient of 21 mmHg. Mild aortic regurgitation. Tricuspid Valve Mild tricuspid regurgitation. Pulmonary artery systolic pressure is normal. Pulmonic Valve Not well visualized Pericardium Normal Aorta Normal in size IVC Appears to be normal CONCLUSIONS LV systolic function is normal with EF of 55 to 60%. Grade 1 diastolic dysfunction. Mild mitral regurgitation. Moderate aortic stenosis. Mild aortic regurgitation. Mild tricuspid regurgitation. Compared to prior echocardiogram from 2022, aortic stenosis has progressed and is moderate now. Sohail Dior MD (Electronically Signed) Final Date: 16 January 2024 12:46 S
== END 2024-01-11 12:30 | disposition home or self-care (01) ==
LOC: RAD 12:29
PROVIDERS: PCP Clinical Nurse Specialist Adult Health; Visit Provider Internal Medicine
DX: I08.3 Combined rheumatic disorders of mitral, aortic and tricuspid valves (principal); R07.9 Chest pain, unspecified; R06.02 Shortness of breath
CPT/HCPCS: 93306

== ENCOUNTER 2024-07-16 09:45 | Outpatient (CLI) | payer MEDICARE, BC, SELFPAY ==
--- NOTE | 2024-07-16 09:49 | XRR_ITS ---
PROCEDURE INFORMATION: Exam: XR Right Hip Exam date and time: 07/16/2024 9:52 AM Age: 83 years old Clinical indication: Right hip; Prior surgery; Surgery date: 6+ months; Surgery type: Left hip replacement; Patient HX: RT posterior hip pain x 1mo, no specific injury; Additional info: Right hip pain TECHNIQUE: Imaging protocol: Radiologic exam of the right hip. Views: 1 view hip with pelvis when performed. COMPARISON: LA bone scan whole body* [id number] 08/14/2017 8:19 AM FINDINGS: Bones/joints: Large heterogeneous sclerotic focus in the proximal right femur probably represents a bone infarct or calcified enchondroma. I have no prior images. Moderate articular surface narrowing and spurring. Soft tissues: Unremarkable. XR/XR hip RT 2-3V wo/w pel* [id number] IMPRESSION: Large heterogeneous focus in the proximal femur more likely benign than malignant but consider MRI for further evaluation.
== END 2024-07-16 09:46 | disposition home or self-care (01) ==
LOC: RAD 09:48
PROVIDERS: PCP Clinical Nurse Specialist Adult Health; Visit Provider Clinical Nurse Specialist Adult Health
DX: M89.8X5 Other specified disorders of bone, thigh (principal); M25.551 Pain in right hip; Z96.642 Presence of left artificial hip joint
CPT/HCPCS: 73502

== ENCOUNTER 2024-08-14 12:48 | Outpatient (CLI) | payer MEDICARE, BC, SELFPAY ==
--- NOTE | 2024-08-14 13:00 | CT_ITS ---
WS: [id number] CT ABDOMEN AND PELVIS WITH AND WITHOUT CONTRAST HISTORY: K56.600 - Partial intestinal obstruction, unspecified as ... TECHNIQUE: Unenhanced 5 mm axial imaging first performed through the abdomen. Post contrast imaging t hrough the abdomen and pelvis. Oral contrast has been provided. Sagittal and coronal reformats are s ubmitted. All CT scans at [facility] use at least one of these dose optimization techniques: automated exposure control; mA and/or kV adjustment per patient size (includes targeted exams where d ose is matched to clinical indication); or iterative reconstruction. CONTRAST: Omnipaque 350; 95 mL IV. DLP: 1369.99 mGy.cm COMPARISON: None available. Lung bases are clear. Heart size is normal. Small hiatal hernia. Normal size liver with hepatic cysts. Normal portal vein. Normal gallbladder. Normal pancreas and spl een. No adrenal mass. Mild perinephric stranding around each kidney with no obstruction. No solid mas s. Moderate atherosclerotic plaque in an ectatic abdominal aorta. Moderate calcification at the rachael c axis and SMA. Stomach is nondistended. No small bowel obstruction. There is a loop of small bowel extending into th e ventral abdominal wall hernia. There are no ischemic changes associated with the omental hernia. Th ere is no fluid in the hernia sac to suggest ischemia. Small bowel and colon are normal caliber with no obstructive pattern. No ascites or adenopathy. There is a very large lobulated complex cystic mass with peripheral calcification associated with the LEFT hip joint in the LEFT iliopsoas muscle. This mass extends over a length of 16 cm and extends ab ove and below the hip joint and transversely by 10.3 cm. LEFT hip prosthesis. 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 This is probably been present for a l jeyson time. Patent RIGHT inguinal hernia contains fat only. Increase in lumbar lordosis. CT/CT abdomen pelvis wo/w [id number] IMPRESSION: 1. No GI tract obstruction. 2. Ventral abdominal wall hernia contains a loop of nondilated small bowel. Th ere is no fluid in the hernia sac to suggest ischemia or acute obstruction. 3. Moderate atherosclerosis aorta with ectasia atherosclerotic disease in the proximal mesenteric artery and celiac axis. 4. No renal obstruction. 5. Hepatic cyst. 6. Very large lobulated complex cystic mass centered at the LEFT hip and the L EFT hip arthroplasty. 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
[2024-08-14] MEDS: iohexol 350 mg/mL 500 mL Btl (per mL) IV (14:09)
[2024-08-14] MEDS: iohexol 350 mg/mL 500 mL Btl (per mL) PO (14:10)
== END 2024-08-14 12:49 | disposition home or self-care (01) ==
LOC: RAD 12:50
PROVIDERS: PCP Clinical Nurse Specialist Adult Health; Visit Provider Family Medicine
DX: K43.6 Other and unspecified ventral hernia with obstruction, without gangrene (principal); K56.600 Partial intestinal obstruction, unspecified as to cause; R22.42 Localized swelling, mass and lump, left lower limb; M40.56 Lordosis, unspecified, lumbar region; Q44.6 Cystic disease of liver; I77.811 Abdominal aortic ectasia; I70.0 Atherosclerosis of aorta; I10 Essential (primary) hypertension; K40.90 Unilateral inguinal hernia, without obstruction or gangrene, not specified as recurrent
CPT/HCPCS: 74178; 80053; 85025

== ENCOUNTER → 2024-10-03 13:54 | Outpatient (BNVA) | payer MEDICARE, BC, SELFPAY | PROVIDERS: PCP Clinical Nurse Specialist Adult Health; Visit Provider Internal Medicine | DX: I10 Essential (primary) hypertension (principal); E78.00 Pure hypercholesterolemia, unspecified; I25.10 Atherosclerotic heart disease of native coronary artery without angina pectoris; I35.2 Nonrheumatic aortic (valve) stenosis with insufficiency; Z95.5 Presence of coronary angioplasty implant and graft; Z87.891 Personal history of nicotine dependence | CPT/HCPCS: 99214 ==

== ENCOUNTER 2024-10-30 06:06 | Outpatient (CLI) | payer MEDICARE, BC, SELFPAY ==
--- NOTE | 2024-10-30 06:15 | USCV_ITS ---
Antonio Amaricarlos Age: 84 Gender: M : 1940 Exam Date: 10/30/2024 06:23 Ordering Phys: Sohail Dior M.D ([email or web address]) Technologist: [place] [facility] [place]: as BP: 130 / 76 HR: 70 Rhythm: Sinus Technical Quality: Adequate MEASUREMENTS (Male / Female) Normal Values 2D ECHO LV Diastolic Diameter PLAX 4.4 cm 4.2 - 5.9 / 3.9 - 5.3 cm IVS Diastolic Thickness 1.4 cm 0.6 - 1.0 / 0.6 - 0.9 cm IVS Systolic Thickness 1.6 cm LVPW Diastolic Thickness 1.5 cm 0.6 - 1.0 / 0.6 - 0.9 cm LVPW Systolic Thickness 1.4 cm LVOT Diameter 2.0 cm LV Ejection Fraction 2D Teich 60.1 % LV Ejection Fraction MOD 4C 66.1 % LV Ejection Fraction MOD 2C 65.3 % LV Ejection Fraction 2C AL 66.6 % LA Diameter 4.0 cm RA Systolic Volume 4C AL 42.8 ml RA Systolic Volume 4C MOD 40.7 ml Aorta at Sinotubular Diameter 3.5 cm IVC Diameter 2.0 cm M-MODE LA Ao Ratio MM 1.1 AV Cusp Separation MM 1.0 cm DOPPLER AV Peak Velocity 286.5 cm/s LVOT Peak Velocity 90.0 cm/s AV Area Cont Eq vti 1.4 cm squared AV Area Cont Eq pk 1.0 cm squared MV Peak Velocity 143.0 cm/s MV Area PHT 2.8 cm squared Mitral E to A Ratio 0.7 TR Peak Velocity 62.0 cm/s TR Peak Gradient 1.5 mmHg PV Peak Velocity 104.0 cm/s FINDINGS Left Ventricle Left ventricle is normal size. LV systolic function is normal with EF of 60-65%. No regional wall motion abnormalities are seen. Grade 1 diastolic dysfunction. Right Ventricle Normal in size and function Right Atrium Normal in size Left Atrium Normal in size Mitral Valve Mitral valve is thickened. Trace mitral regurgitation. Aortic Valve Aortic valve is thickened and calcified. Mild aortic stenosis with aortic valve area of 1.42 cm squared and mean gradient of 17 mmHg. Mild to moderate aortic regurgitation. Tricuspid Valve Insufficient TR jet to calculate RVSP Pulmonic Valve Not well visualized Pericardium Normal Aorta Normal in size IVC Appears to be normal. CONCLUSIONS LV systolic function is normal with EF of 60-65% Grade 1 diastolic dysfunction Trace mitral regurgitation Mild aortic stenosis Mild to moderate aortic regurgitation. Compared to prior echocardiogram from 12/2023 no significant changes are seen. Sohail Dior MD (Electronically Signed) Final Date: 02 November 2024 18:02 S
== END 2024-10-30 06:07 | disposition home or self-care (01) ==
PROVIDERS: PCP Clinical Nurse Specialist Adult Health; Visit Provider Internal Medicine
DX: I35.2 Nonrheumatic aortic (valve) stenosis with insufficiency (principal); I50.30 Unspecified diastolic (congestive) heart failure; I34.2 Nonrheumatic mitral (valve) stenosis
CPT/HCPCS: 93306

== ENCOUNTER → 2024-11-26 17:04 | Outpatient (BNVA) | payer MEDICARE, BC, SELFPAY | PROVIDERS: PCP Clinical Nurse Specialist Adult Health; Visit Provider Emergency Medicine | DX: R82.90 Unspecified abnormal findings in urine (principal); R39.9 Unspecified symptoms and signs involving the genitourinary system | CPT/HCPCS: 81000; 87086 ==

== ENCOUNTER → 2024-12-03 15:38 | Outpatient (BNVA) | payer MEDICARE, BC, SELFPAY | PROVIDERS: PCP Clinical Nurse Specialist Adult Health; Visit Provider Nurse Practitioner Family | DX: L57.8 Other skin changes due to chronic exposure to nonionizing radiation (principal); L81.4 Other melanin hyperpigmentation; D22.5 Melanocytic nevi of trunk; L85.3 Xerosis cutis; Z08 Encounter for follow-up examination after completed treatment for malignant neoplasm | CPT/HCPCS: 11102; 17000; 99214 ==

== ENCOUNTER → 2025-02-13 14:03 | Outpatient (BNVA) | payer MEDICARE, BC, SELFPAY | PROVIDERS: PCP Clinical Nurse Specialist Adult Health; Visit Provider Dermatology | DX: C44.41 Basal cell carcinoma of skin of scalp and neck (principal); L82.1 Other seborrheic keratosis; D04.4 Carcinoma in situ of skin of scalp and neck; L82.0 Inflamed seborrheic keratosis; L57.0 Actinic keratosis | CPT/HCPCS: 17000; 17110; 17271; 99213 ==

== ENCOUNTER → 2025-04-03 15:20 | Outpatient (BNVA) | payer MEDICARE, BC, SELFPAY | PROVIDERS: PCP Clinical Nurse Specialist Adult Health; Visit Provider Internal Medicine | DX: I10 Essential (primary) hypertension (principal); I25.10 Atherosclerotic heart disease of native coronary artery without angina pectoris; I35.2 Nonrheumatic aortic (valve) stenosis with insufficiency; E78.00 Pure hypercholesterolemia, unspecified; Z79.82 Long term (current) use of aspirin; Z95.5 Presence of coronary angioplasty implant and graft; Z87.891 Personal history of nicotine dependence | CPT/HCPCS: 99213 ==

== ENCOUNTER → 2025-05-26 12:10 | Outpatient (BNVA) | payer MEDICARE, BC, SELFPAY | PROVIDERS: PCP Clinical Nurse Specialist Adult Health; Visit Provider Dermatology | DX: L82.1 Other seborrheic keratosis (principal); L57.8 Other skin changes due to chronic exposure to nonionizing radiation; Z08 Encounter for follow-up examination after completed treatment for malignant neoplasm; Z85.828 Personal history of other malignant neoplasm of skin; D48.5 Neoplasm of uncertain behavior of skin; L57.0 Actinic keratosis | CPT/HCPCS: 11102; 17000; 99213 ==

== ENCOUNTER → 2025-08-14 09:14 | Outpatient (BNVA) | payer MEDICARE, BC, SELFPAY | PROVIDERS: PCP Clinical Nurse Specialist Adult Health; Visit Provider Family Medicine | DX: I10 Essential (primary) hypertension (principal); E78.00 Pure hypercholesterolemia, unspecified | CPT/HCPCS: 80053; 80061; 85025 ==

== ENCOUNTER → 2025-08-25 08:20 | Outpatient (BNVA) | payer MEDICARE, BC, SELFPAY | PROVIDERS: PCP Clinical Nurse Specialist Adult Health; Visit Provider Dermatology | DX: L82.1 Other seborrheic keratosis (principal); L57.8 Other skin changes due to chronic exposure to nonionizing radiation; D69.2 Other nonthrombocytopenic purpura; Z08 Encounter for follow-up examination after completed treatment for malignant neoplasm; Z85.828 Personal history of other malignant neoplasm of skin; L57.0 Actinic keratosis | CPT/HCPCS: 17000; 99213 ==

== ENCOUNTER → 2025-09-14 10:42 | Outpatient (BNVA) | payer MEDICARE, BC, SELFPAY | PROVIDERS: PCP Clinical Nurse Specialist Adult Health; Visit Provider Nurse Practitioner | DX: J02.9 Acute pharyngitis, unspecified (principal) | CPT/HCPCS: 87880 ==

== ENCOUNTER → 2025-10-22 11:17 | Outpatient (BNVA) | payer MEDICARE, BC, SELFPAY | PROVIDERS: PCP Clinical Nurse Specialist Adult Health; Visit Provider Dermatology | DX: L57.0 Actinic keratosis (principal) | CPT/HCPCS: 96573 ==